=== PATIENT | male | born 1965 | race Caucasian/White ===

== ENCOUNTER 2017-10-18 12:27 | Observation (INO) | payer SELFPAY ==
[~2017-10-18] VITALS: Ht 182.9 cm; Wt 94.9 kg
[2017-10-18 12:54] LABS: BASOPHILS % (AUTO) 0.5 % (0.0-5.0); EOSINOPHILS % (AUTO) 1.2 % (0.0-8.0); HEMATOCRIT 54.1 % (42-54); LYMPHOCYTES % (AUTO) 9.2 % (21.0-51.0); MEAN CORPUSCULAR HEMOGLOBIN 31.7 pg (27.0-33.0); MEAN CORPUSCULAR HGB CONC 33.8 g/dL (32.0-36.0); MEAN CORPUSCULAR VOLUME 93.9 fL (79-99); MONOCYTES % (AUTO) 9.8 % (3.0-13.0); NEUTROPHILS % (AUTO) 79.3 % (40.0-77.0); NUCLEATED RED BLOOD CELLS 0.1 % (0.0-0.19); PLATELET COUNT (AUTO) 323 K/uL (130-400); RED BLOOD CELL COUNT(AUTO) 5.76 MIL/uL (4.50-6.20); RED CELL DISTRIBUTION WIDTH 13.9 % (11.0-15.5); WHITE BLOOD COUNT (AUTO) 13.3 K/uL (4.8-10.8)
[2017-10-18 13:01] LABS: CARBON DIOXIDE 32 mmol/L (21-32); CHLORIDE 100 mmol/L (101-111); CREATININE 1.9 mg/dL (0.5-1.5); GLOMERULAR FILTR. RATE CALC 40 mL/min (>60); GLUCOSE,RANDOM 75 mg/dL (70-105); POTASSIUM 4.3 mmol/L (3.5-5.1); SODIUM SERUM 136 mmol/L (136-145); UREA NITROGEN, BLOOD 16 mg/dL (7-18)
[2017-10-18] MEDS ORDERED: SODIUM CHLORIDE 0.9% 1000ML 1,000 ML IV ONE ×2 (13:02→14:35)
[2017-10-18 13:05] LABS: ALANINE AMINOTRANSFERASE 26 U/L (12-78); ALBUMIN 3.9 g/dL (3.5-5.0); ASPARTATE AMINOTRANSFERASE 31 U/L (10-37); BILIRUBIN,TOTAL 1.2 mg/dL (0.2-1.0); TOTAL PROTEIN, SERUM 7.2 g/dL (6.0-8.3)
[2017-10-18 13:08] LABS: ALCOHOL, BLOOD < 3 mg/dL (0-10)
[2017-10-18 14:11] LABS: APPEARANCE,URINE Clear (CLEAR); BILIRUBIN,URINE Small (NEGATIVE); COLOR,URINE Dark Yellow (YELLOW); GLUCOSE, URINE (UA) Negative (NEGATIVE); KETONES,URINE 40 mg/dL (NEGATIVE); LEUKOCYTE ESTERASE ,URINE Small (NEGATIVE); NITRATE,URINE Negative (NEGATIVE); OCCULT BLOOD,URINE Negative (NEGATIVE); PROTEIN,URINE POS 2+ (NEGATIVE)
[2017-10-18 14:18] LABS: AMPHET/METH SCREEN,URINE NEGATIVE (NEGATIVE); BARBITURATE SCREEN, URINE NEGATIVE (NEGATIVE); BENZODIAZEPINES SCREEN,URINE POSITIVE (NEGATIVE); CANNABINOID SCREEN,URINE POSITIVE (NEGATIVE); COCAINE SCREEN,URINE POSITIVE (NEGATIVE); OPIATE SCREEN,URINE NEGATIVE (NEGATIVE); PHENCYCLIDINE SCREEN,URINE NEGATIVE (NEGATIVE)
[2017-10-18 14:29] LABS: BACTERIA,URINE None Seen /HPF (None Seen); MUCUS,URINE Moderate LPF (None Seen); RBC,URINE None Seen /HPF (0-1); TRANSITIONAL EPI CELLS,URINE Few /HPF (None Seen)
[2017-10-18 15:00] LABS: ABG BASE EXCESS -2.5 mmol/L (-2.0-3.0); ABG HCO3 22.5 mmol/L (21.0-28.0); ABG OXYGEN SATURATION 94.9 % (95.0-99.0); ABG PCO2 40 mmHg (35-48)
[2017-10-18] MEDS ORDERED: LIDOCAINE HCL 1% 20 ML VIAL ONE (15:37)
[2017-10-18 16:19] LABS: INR 1.1 (0.85-1.15); PROTHROMBIN TIME 11.5 SEC (9.6-11.6)
[2017-10-18 18:22] LABS: APPEARANCE,CSF CLEAR (CLEAR); COLOR,CSF COLORLESS (COLORLESS); CSF TUBE NUMBER 1
[2017-10-18 18:24] LABS: CSF 2ND TUBE NUMBER 3
[2017-10-18 18:25] LABS: APPEARANCE2,CSF CLEAR (CLEAR); COLOR2,CSF COLORLESS (COLORLESS)
[2017-10-18] MEDS ORDERED: LACTATED RINGERS 1000ML 1,000 ML IV ONE (18:30)
[2017-10-18 18:41] LABS: RED BLOOD CELL1,CSF 50 CMM (0-0); WHITE BLOOD CELL1,CSF 1 CMM (0-5)
[2017-10-18 18:52] LABS: GLUCOSE, CSF 64 mg/dL (40-70); TOTAL PROTEIN, CSF 34 mg/dL (15-45)
[2017-10-18 19:00] VITALS: BP 86/37
[2017-10-18 20:00] VITALS: BP 82/56
[2017-10-18 21:00] VITALS: BP 85/51
[2017-10-18 22:00] VITALS: BP 87/51
[2017-10-18 23:00] VITALS: BP 111/62
[2017-10-19] VITALS (7 sets, daily range): BP systolic 97–116; BP diastolic 53–67
[2017-10-19] MEDS ORDERED: LACTATED RINGERS 1000ML 1,000 ML IV ONE (04:02)
[2017-10-19] MEDS ORDERED: LACTATED RINGERS 1000ML 1,000 ML IV SCH (04:15)
[2017-10-19] MEDS ORDERED: ENOXAPARIN SODIUM 40 MG/0.4 ML SYRINGE SQ SCH (08:00)
[2017-10-19] MEDS ORDERED: PANTOPRAZOLE SODIUM 40 MG TABLET.DR PO SCH (09:00)
== END 2017-10-19 11:01 | disposition left against medical advice (07) ==
LOC: EDH 12:27 → EDHIP 12:28 → 2CH 18:09
PROVIDERS: ADMIT Internal Medicine Nephrology; ATTEND Internal Medicine Nephrology
DX: G31.9 Degenerative disease of nervous system, unspecified (principal); D72.829 Elevated white blood cell count, unspecified; Z79.899 Other long term (current) drug therapy
CPT/HCPCS: 36415; 36600; 62270; 70450; 80053; 80305; 81001; 82375; 82803; 82945; 83605; 84157; 85025; 85610; 85730; 87071; 87147; 87205; 87210; 87252; 87556; 89051 ×2; 93005; 96372; 99291; G0378 ×23; G0480; J1650; J7030 ×2; J7120 ×2

== ENCOUNTER 2021-03-06 11:13 | Inpatient (IN) | payer SELFPAY ==
[~2021-03-06] VITALS: Ht 182.9 cm; Wt 102.1 kg
[2021-03-06 12:26] LABS: BASOPHILS % (AUTO) 0.6 % (0.0-5.0); EOSINOPHILS % (AUTO) 0.9 % (0.0-8.0); HEMATOCRIT 49.2 % (42-54); LYMPHOCYTES % (AUTO) 14.9 % (21.0-51.0); MEAN CORPUSCULAR HEMOGLOBIN 29.1 pg (27.0-33.0); MEAN CORPUSCULAR HGB CONC 33.1 g/dL (32.0-36.0); MEAN CORPUSCULAR VOLUME 87.9 fL (79-99); MONOCYTES % (AUTO) 9.3 % (3.0-13.0); NEUTROPHILS % (AUTO) 73.7 % (40.0-77.0); PLATELET COUNT (AUTO) 354 K/uL (130-400); RED CELL DISTRIBUTION WIDTH 15.6 % (11.0-15.5); WHITE BLOOD COUNT (AUTO) 11.6 K/uL (4.8-10.8)
[2021-03-06 12:35] LABS: CREATININE 1.1 mg/dL (0.5-1.5); POTASSIUM 3.8 mmol/L (3.5-5.1)
[2021-03-06] MEDS ORDERED: DILTIAZEM 25MG INJ IVP STA (12:38)
[2021-03-06 12:40] LABS: ALBUMIN 3.4 g/dL (3.5-5.0); BILIRUBIN,TOTAL 0.2 mg/dL (0.2-1.0); TOTAL PROTEIN, SERUM 7.3 g/dL (6.0-8.3)
[2021-03-06] MEDS ORDERED: DILTIAZEM 50MG VIAL IV ONE (12:41)
[2021-03-06 13:00] LABS: MAGNESIUM 1.9 mg/dL (1.80-2.40)
[2021-03-06] MEDS ORDERED: ENOXAPARIN SODIUM 100 MG/1 ML SQ SCH (13:00)
[2021-03-06] MEDS ORDERED: 0.9% NACL 500ML IV.SOLN 500 ML IV ONE (13:00)
[2021-03-06] MEDS ORDERED: ONDANSETRON 4MG INJ IVP STA (13:32)
[2021-03-06] MEDS ORDERED: FOLIC ACID 1 MG, THIAMINE HCL 100 MG in 0.9%NACL 1000ML 1,000 ML IV ONE (13:37)
[2021-03-06] MEDS ORDERED: FAMOTIDINE 20MG VIAL IV STA (13:38)
[2021-03-06] MEDS ORDERED: AMIODARONE 150MG VIAL 150 MG in DEXTROSE 5%-WATER 100 ML IV ONE ×2 (13:51→14:30)
[2021-03-06] MEDS ORDERED: DILTIAZEM 25MG INJ IVP PRN (15:00)
[2021-03-06] MEDS ORDERED: DILTIAZEM 125 MG/25 ML INJ 125 MG in 0.9%NACL 100ML 100 ML IV PRN (15:00)
[2021-03-06] MEDS ORDERED: DILTIAZEM 125 MG/25 ML INJ 125 MG in 0.9%NACL 100ML 100 ML IV SCH (15:00)
[2021-03-06] MEDS ORDERED: PHARMACY COMMUNICATION MISC PRN (15:00)
[2021-03-06] MEDS ORDERED: COMPOUND IV REFRIGERATED 1 EACH IVSOLN MISC PRN (15:30)
[2021-03-06 15:39] LABS: AMPHET/METH SCREEN,URINE NEGATIVE (NEGATIVE); BARBITURATE SCREEN, URINE NEGATIVE (NEGATIVE); BENZODIAZEPINES SCREEN,URINE POSITIVE (NEGATIVE); CANNABINOID SCREEN,URINE POSITIVE (NEGATIVE); COCAINE SCREEN,URINE POSITIVE (NEGATIVE); OPIATE SCREEN,URINE NEGATIVE (NEGATIVE); PHENCYCLIDINE SCREEN,URINE NEGATIVE (NEGATIVE)
[2021-03-06 15:48] LABS: APPEARANCE,URINE CLEAR (CLEAR); BILIRUBIN,URINE NEGATIVE (NEGATIVE); COLOR,URINE YELLOW (YELLOW); GLUCOSE, URINE (UA) NEGATIVE (NEGATIVE); KETONES,URINE NEGATIVE (NEGATIVE); LEUKOCYTE ESTERASE ,URINE NEGATIVE (NEGATIVE); NITRATE,URINE NEGATIVE (NEGATIVE); OCCULT BLOOD,URINE NEGATIVE (NEGATIVE); PH,URINE 6.5 (5.0-8.0); PROTEIN,URINE 30 mg/dL (NEGATIVE); UROBILINOGEN,URINE 0.2 mg/dL (0.2-1.0)
[2021-03-06 15:54] LABS: BACTERIA,URINE Few /HPF (None Seen); HYALINE CASTS, URINE 0-1 /LPF (0-1 /LPF); MUCUS,URINE Moderate LPF (None Seen); SQUAMOUS EPITHELIAL CELL,UR Few /HPF (0-2)
[2021-03-06] MEDS ORDERED: METOPROLOL TARTRATE 1 MG/ML 5ML VIAL IV ONE (16:30)
[2021-03-06] MEDS: METOPROLOL SUCCINATE 50 MG TAB.SR.24H PO SCH (16:30)
[2021-03-06] MEDS ORDERED: DIGOXIN 250 MCG/ML 2ML AMP IV SCH (17:00)
[2021-03-06] MEDS ORDERED: ACETAMINOPHEN 325 MG TAB PO PRN (21:00)
[2021-03-06] MEDS ORDERED: HYDROCODONE/ACETAMINOPHEN 7.5/325 MG TAB PO ONE (21:00)
[2021-03-06] MEDS: CHLORDIAZEPOXIDE HCL 25 MG CAP PO PRN (22:02)
[2021-03-06] MEDS ORDERED: KETOROLAC 15MG/ML VIAL (15MG/ML) IV ONE (23:00)
[2021-03-07 01:30] VITALS: BP 132/64
[2021-03-07 04:43] VITALS: BP 142/38
[2021-03-07] MEDS: ACETAMINOPHEN 325 MG TAB PO PRN ×2 (06:33→12:29)
[2021-03-07] MEDS: CHLORDIAZEPOXIDE HCL 25 MG CAP PO PRN ×3 (06:46→20:13)
[2021-03-07 07:00] VITALS: BP 140/67
[2021-03-07] MEDS ORDERED: THIAMINE HCL 100 MG/ML 2ML VIAL IVP SCH (09:00)
[2021-03-07] MEDS ORDERED: PANTOPRAZOLE 40 MG/VIAL IVP SCH (09:00)
[2021-03-07] MEDS: ENOXAPARIN SODIUM 30 MG/0.3 ML SQ SCH (09:02)
[2021-03-07] MEDS: PANTOPRAZOLE 40 MG TAB DR PO SCH (09:02)
[2021-03-07] MEDS: METOPROLOL SUCCINATE 50 MG TAB.SR.24H PO SCH (09:03)
[2021-03-07 11:00] VITALS: BP 118/91
[2021-03-07] MEDS ORDERED: M.V.I. IV [ADULT] 10 ML, FOLIC ACID 1 MG, THIAMINE HCL 300 MG in 0.9%NACL 1000ML 1,000 ML IV SCH (12:00)
[2021-03-07 16:00] VITALS: BP 128/68
[2021-03-07 19:10] VITALS: BP 134/91
[2021-03-07] MEDS ORDERED: TRAMADOL HCL 50 MG TABLET ONE (20:06)
[2021-03-07] MEDS: TRAMADOL HCL 50 MG TABLET PO PRN (20:14)
[2021-03-07] MEDS: M.V.I. IV [ADULT] 10 ML, FOLIC ACID 1 MG, THIAMINE HCL 300 MG in 0.9%NACL 1000ML 1,000 ML IV SCH (20:18)
[2021-03-08 08:00] VITALS: BP 121/91
[2021-03-08] MEDS: METOPROLOL SUCCINATE 50 MG TAB.SR.24H PO SCH ×4 (09:25→20:21)
[2021-03-08] MEDS: PANTOPRAZOLE 40 MG TAB DR PO SCH (09:27)
[2021-03-08] MEDS ORDERED: METO25TA6 PO (09:27)
[2021-03-08] MEDS ORDERED: APIX5TAB PO (09:27)
[2021-03-08] MEDS: ENOXAPARIN SODIUM 30 MG/0.3 ML SQ SCH (09:27)
[2021-03-08] MEDS: ACETAMINOPHEN 325 MG TAB PO PRN (09:36)
[2021-03-08] MEDS ORDERED: METOPROLOL TARTRATE 1 MG/ML 5ML VIAL IV SCH (10:49)
[2021-03-08] MEDS ORDERED: METOPROLOL TARTRATE 1 MG/ML 5ML VIAL IV ONE (10:52)
[2021-03-08 11:44] VITALS: BP 141/88
[2021-03-08 16:00] VITALS: BP 115/76
[2021-03-08] MEDS ORDERED: PHARMACY COMMUNICATION MISC SCH (16:00)
[2021-03-08 19:48] VITALS: BP 132/79
[2021-03-08] MEDS: M.V.I. IV [ADULT] 10 ML, FOLIC ACID 1 MG, THIAMINE HCL 300 MG in 0.9%NACL 1000ML 1,000 ML IV SCH (20:00)
[2021-03-08] MEDS: CHLORDIAZEPOXIDE HCL 25 MG CAP PO PRN (20:21)
[2021-03-08] MEDS: TRAMADOL HCL 50 MG TABLET PO PRN (20:21)
[2021-03-09] MEDS: TRAMADOL HCL 50 MG TABLET PO PRN ×2 (03:41→13:43)
[2021-03-09 04:00] VITALS: BP 126/87
[2021-03-09 08:00] VITALS: BP 136/69
[2021-03-09] MEDS: METOPROLOL SUCCINATE 50 MG TAB.SR.24H PO SCH ×2 (09:05→13:43)
[2021-03-09] MEDS: PANTOPRAZOLE 40 MG TAB DR PO SCH (09:05)
[2021-03-09] MEDS: ACETAMINOPHEN 325 MG TAB PO PRN ×2 (09:06→16:16)
[2021-03-09] MEDS: ENOXAPARIN SODIUM 30 MG/0.3 ML SQ SCH (09:07)
[2021-03-09 12:00] VITALS: BP 121/79
== END 2021-03-09 17:30 | disposition home or self-care (01) | DRG 308 ==
LOC: EDH 11:13 → EDHIP 11:14 → 4DH 03-07 00:15 → 4CH 03-08 18:52
PROVIDERS: ADMIT Hospitalist; ATTEND Hospitalist
DX: I48.0 Paroxysmal atrial fibrillation (principal); I50.43 Acute on chronic combined systolic (congestive) and diastolic (congestive) heart failure; D68.59 Other primary thrombophilia; F12.10 Cannabis abuse, uncomplicated; F13.90 Sedative, hypnotic, or anxiolytic use, unspecified, uncomplicated; F14.10 Cocaine abuse, uncomplicated; Z95.810 Presence of automatic (implantable) cardiac defibrillator; Z91.14 Patient's other noncompliance with medication regimen; Z79.01 Long term (current) use of anticoagulants; Z79.899 Other long term (current) drug therapy
CPT/HCPCS: 36415; 71045; 80053; 80305; 81001; 82550; 83735; 83880; 84484; 85025; 93005; 99291; 99292; G0378; J0282; J1160; J1650; J2405; J3411; J3490; J7030; J7060

== ENCOUNTER 2021-07-25 19:21 | Inpatient (IN) | payer OTHER ==
[~2021-07-25] VITALS: Ht 180.3 cm; Wt 87.7 kg
[~2021-07-25 19:21] MED LIST: APIX5TAB PO; METO25TA6 PO
[2021-07-25] MEDS ORDERED: 0.9%NACL 1000ML 2,000 ML IV ONE (20:00)
[2021-07-25] MEDS ORDERED: DILTIAZEM 50MG VIAL IV SCH (20:00)
[2021-07-25 20:09] LABS: BASOPHILS % (AUTO) 0.4 % (0.0-5.0); EOSINOPHILS % (AUTO) 2.2 % (0.0-8.0); HEMATOCRIT 45.2 % (42-54); MEAN CORPUSCULAR HEMOGLOBIN 30.2 pg (27.0-33.0); MEAN CORPUSCULAR HGB CONC 33.2 g/dL (32.0-36.0); MEAN CORPUSCULAR VOLUME 90.9 fL (79-99); MONOCYTES % (AUTO) 8.3 % (3.0-13.0); NEUTROPHILS % (AUTO) 79.6 % (40.0-77.0); PLATELET COUNT (AUTO) 357 K/uL (130-400); RED BLOOD CELL COUNT(AUTO) 4.97 MIL/uL (4.50-6.20); RED CELL DISTRIBUTION WIDTH 13.4 % (11.0-15.5); WHITE BLOOD COUNT (AUTO) 13.5 K/uL (4.8-10.8)
[2021-07-25 20:19] LABS: CREATININE 0.9 mg/dL (0.5-1.5); POTASSIUM 3.3 mmol/L (3.5-5.1)
[2021-07-25 20:25] LABS: ALCOHOL, BLOOD < 3 mg/dL (0-10); CREATINE KINASE, TOTAL 234 U/L (21-232)
[2021-07-25 20:29] LABS: ALBUMIN 3.3 g/dL (3.5-5.0); BILIRUBIN,TOTAL 0.5 mg/dL (0.2-1.0); TOTAL PROTEIN, SERUM 6.9 g/dL (6.0-8.3)
[2021-07-25 21:15] LABS: APPEARANCE,URINE Clear (CLEAR); BILIRUBIN,URINE Negative (NEGATIVE); COLOR,URINE Yellow (YELLOW); GLUCOSE, URINE (UA) Negative (NEGATIVE); KETONES,URINE Negative (NEGATIVE); LEUKOCYTE ESTERASE ,URINE Small (NEGATIVE); NITRATE,URINE Negative (NEGATIVE); OCCULT BLOOD,URINE Negative (NEGATIVE); PROTEIN,URINE Negative (NEGATIVE)
[2021-07-25] MEDS: DILTIAZEM 125 MG/25 ML INJ 125 MG in 0.9%NACL 100ML 100 ML IV SCH (21:21)
[2021-07-25 21:23] LABS: AMPHET/METH SCREEN,URINE NEGATIVE (NEGATIVE); BARBITURATE SCREEN, URINE NEGATIVE (NEGATIVE); BENZODIAZEPINES SCREEN,URINE POSITIVE (NEGATIVE); CANNABINOID SCREEN,URINE POSITIVE (NEGATIVE); COCAINE SCREEN,URINE POSITIVE (NEGATIVE); OPIATE SCREEN,URINE NEGATIVE (NEGATIVE); PHENCYCLIDINE SCREEN,URINE NEGATIVE (NEGATIVE)
[2021-07-25 21:30] LABS: BACTERIA,URINE Rare /HPF (None Seen); RBC,URINE None Seen /HPF (0-1); WBC,URINE 0-1 /HPF (0-1)
[2021-07-25 21:31] LABS: SQUAMOUS EPITHELIAL CELL,UR None Seen /HPF (0-2)
[2021-07-25] MEDS ORDERED: DILTIAZEM 25MG INJ IVP ONE (22:00)
[2021-07-25] MEDS ORDERED: ONDANSETRON 4MG INJ IV PRN (22:00)
[2021-07-25] MEDS ORDERED: NITROGLYCERIN 0.4 MG SL TAB SL PRN (22:00)
[2021-07-25] MEDS ORDERED: 0.9%NACL 1000ML 1,000 ML IV SCH (22:30)
[2021-07-25] MEDS: 0.9%NACL 1000ML 1,000 ML IV SCH (22:49)
[2021-07-25] MEDS ORDERED: KCL 20 MEQ ERTAB PO PRN (23:30)
[2021-07-25] MEDS ORDERED: LIDOCAINE HCL-MPF 1% 2ML VIAL IV PRN (23:30)
[2021-07-25] MEDS ORDERED: POTASSIUM CHLORIDE 20MEQ/100ML 100 ML IV PRN (23:30)
[2021-07-25] MEDS ORDERED: POTASSIUM CHLORIDE 10% ELIXIR 20 MEQ/15 ML UDCUP PO PRN (23:30)
[2021-07-26] MEDS ORDERED: 0.9%NACL 100ML 100 ML ONE (03:58)
[2021-07-26] MEDS ORDERED: DILTIAZEM 125 MG/25 ML INJ IV ONE (03:58)
[2021-07-26] MEDS: DILTIAZEM 125 MG/25 ML INJ 125 MG in 0.9%NACL 100ML 100 ML IV SCH ×2 (04:11→16:26)
[2021-07-26 07:03] LABS: BASOPHILS % (AUTO) 0.2 % (0.0-5.0); EOSINOPHILS % (AUTO) 1.7 % (0.0-8.0); LYMPHOCYTES % (AUTO) 9.3 % (21.0-51.0); MEAN CORPUSCULAR HEMOGLOBIN 29.7 pg (27.0-33.0); MEAN CORPUSCULAR HGB CONC 32.3 g/dL (32.0-36.0); MEAN CORPUSCULAR VOLUME 91.9 fL (79-99); MONOCYTES % (AUTO) 9.2 % (3.0-13.0); NEUTROPHILS % (AUTO) 79.2 % (40.0-77.0); PLATELET COUNT (AUTO) 292 K/uL (130-400); RED BLOOD CELL COUNT(AUTO) 4.68 MIL/uL (4.50-6.20); RED CELL DISTRIBUTION WIDTH 13.6 % (11.0-15.5); WHITE BLOOD COUNT (AUTO) 13.5 K/uL (4.8-10.8)
[2021-07-26 07:15] LABS: CREATININE 0.7 mg/dL (0.5-1.5); PHOSPHORUS 3.2 mg/dL (2.5-4.9); POTASSIUM 3.9 mmol/L (3.5-5.1)
[2021-07-26] MEDS: 0.9%NACL 1000ML 1,000 ML IV SCH (08:37)
[2021-07-26] MEDS: FAMOTIDINE 20MG TAB PO SCH (08:38)
[2021-07-26] MEDS: ENOXAPARIN SODIUM 40 MG/0.4 ML SYRINGE SQ SCH (08:38)
[2021-07-26] MEDS ORDERED: M.V.I. IV [ADULT] 10 ML, FOLIC ACID 1 MG, THIAMINE HCL 100 MG in 0.9%NACL 1000ML 1,000 ML IV SCH (09:43)
[2021-07-26] MEDS: CEFTRIAXONE 1G VIAL IVP SCH (11:07)
[2021-07-26 11:46] VITALS: BP 108/60
[2021-07-26 14:00] VITALS: BP 102/56
[2021-07-26 16:54] VITALS: BP 91/60
[2021-07-26 18:12] VITALS: BP 97/60
[2021-07-26 19:06] VITALS: BP 100/65
[2021-07-26 23:22] VITALS: BP 98/58
[2021-07-27 03:32] VITALS: BP 103/64
[2021-07-27 07:30] VITALS: BP 127/75
[2021-07-27] MEDS: FAMOTIDINE 20MG TAB PO SCH (08:43)
[2021-07-27] MEDS: FOLIC ACID 1 MG TABLET PO SCH (08:43)
[2021-07-27] MEDS: THIAMINE HCL 100 MG TABLET PO SCH (08:43)
[2021-07-27] MEDS: ENOXAPARIN SODIUM 40 MG/0.4 ML SYRINGE SQ SCH (08:44)
[2021-07-27] MEDS: CEFTRIAXONE 1G VIAL IVP SCH (09:28)
[2021-07-27 10:45] LABS: BASOPHILS % (AUTO) 0.5 % (0.0-5.0); EOSINOPHILS % (AUTO) 1.5 % (0.0-8.0); HEMATOCRIT 45.5 % (42-54); LYMPHOCYTES % (AUTO) 14.9 % (21.0-51.0); MEAN CORPUSCULAR HEMOGLOBIN 29.9 pg (27.0-33.0); MEAN CORPUSCULAR HGB CONC 31.6 g/dL (32.0-36.0); MEAN CORPUSCULAR VOLUME 94.4 fL (79-99); MONOCYTES % (AUTO) 7.7 % (3.0-13.0); NEUTROPHILS % (AUTO) 74.8 % (40.0-77.0); PLATELET COUNT (AUTO) 314 K/uL (130-400); RED BLOOD CELL COUNT(AUTO) 4.82 MIL/uL (4.50-6.20)
[2021-07-27 11:06] LABS: BILIRUBIN,TOTAL 0.5 mg/dL (0.2-1.0); CREATININE 0.9 mg/dL (0.5-1.5); POTASSIUM 3.7 mmol/L (3.5-5.1); TOTAL PROTEIN, SERUM 6.5 g/dL (6.0-8.3)
[2021-07-27 11:20] VITALS: BP 109/65
[2021-07-27 18:51] VITALS: BP 110/64
[2021-07-27 19:35] VITALS: BP 122/80
[2021-07-27] MEDS: TRAZODONE HCL 50 MG TAB PO SCH (19:41)
[2021-07-27] MEDS ORDERED: METOPROLOL TARTRATE 25 MG TAB PO SCH (21:00)
[2021-07-27] MEDS: HYDROXYZINE 25 MG TABLET PO SCH (21:00)
[2021-07-28 08:00] VITALS: BP 129/83
[2021-07-28] MEDS ORDERED: PHARMACY COMMUNICATION MISC PRN (09:30)
[2021-07-28] MEDS ORDERED: CHLORDIAZEPOXIDE HCL 25 MG CAP PO PRN (09:30)
[2021-07-28] MEDS: CEFTRIAXONE 1G VIAL IVP SCH (11:14)
[2021-07-28] MEDS: FOLIC ACID 1 MG TABLET PO SCH (11:15)
[2021-07-28] MEDS: THIAMINE HCL 100 MG TABLET PO SCH (11:15)
[2021-07-28] MEDS: HYDROXYZINE 25 MG TABLET PO SCH ×3 (11:15→19:29)
[2021-07-28] MEDS: METOPROLOL TARTRATE 25 MG TAB PO SCH ×2 (11:15→19:30)
[2021-07-28] MEDS: FAMOTIDINE 20MG TAB PO SCH (11:15)
[2021-07-28] MEDS: APIXABAN 5 MG TABLET PO SCH ×2 (11:16→19:30)
[2021-07-28] MEDS ORDERED: ACETAMINOPHEN 500 MG TABLET PO PRN (12:30)
[2021-07-28] MEDS: TRAZODONE HCL 50 MG TAB PO SCH (19:30)
[2021-07-28] MEDS ORDERED: APIXABAN 5 MG TABLET PO SCH (21:00)
[2021-07-29 07:31] LABS: BASOPHILS % (AUTO) 0.6 % (0.0-5.0); EOSINOPHILS % (AUTO) 0.9 % (0.0-8.0); HEMATOCRIT 47.2 % (42-54); LYMPHOCYTES % (AUTO) 19.5 % (21.0-51.0); MEAN CORPUSCULAR HEMOGLOBIN 29.8 pg (27.0-33.0); MEAN CORPUSCULAR HGB CONC 31.6 g/dL (32.0-36.0); MEAN CORPUSCULAR VOLUME 94.4 fL (79-99); MONOCYTES % (AUTO) 7.1 % (3.0-13.0); NEUTROPHILS % (AUTO) 71.5 % (40.0-77.0); PLATELET COUNT (AUTO) 320 K/uL (130-400); RED CELL DISTRIBUTION WIDTH 13.8 % (11.0-15.5); WHITE BLOOD COUNT (AUTO) 8.5 K/uL (4.8-10.8)
[2021-07-29 07:40] LABS: POTASSIUM 4.2 mmol/L (3.5-5.1)
[2021-07-29 08:00] VITALS: BP 132/67
[2021-07-29] MEDS: APIXABAN 5 MG TABLET PO SCH ×2 (08:29→20:20)
[2021-07-29] MEDS: FOLIC ACID 1 MG TABLET PO SCH (08:29)
[2021-07-29] MEDS: HYDROXYZINE 25 MG TABLET PO SCH ×3 (08:29→20:20)
[2021-07-29] MEDS: METOPROLOL TARTRATE 25 MG TAB PO SCH ×2 (08:29→20:20)
[2021-07-29] MEDS: FAMOTIDINE 20MG TAB PO SCH (08:29)
[2021-07-29] MEDS: THIAMINE HCL 100 MG TABLET PO SCH (08:29)
[2021-07-29 12:00] VITALS: BP 108/69
[2021-07-29 16:00] VITALS: BP 108/74
[2021-07-29 19:00] VITALS: BP 106/61
[2021-07-29] MEDS: TRAZODONE HCL 50 MG TAB PO SCH (20:20)
[2021-07-30 07:32] VITALS: BP 120/71
[2021-07-30] MEDS ORDERED: METO25TA6 PO (08:46)
[2021-07-30] MEDS ORDERED: APIX5TAB PO (08:46)
[2021-07-30] MEDS: METOPROLOL TARTRATE 25 MG TAB PO SCH (09:18)
[2021-07-30] MEDS: THIAMINE HCL 100 MG TABLET PO SCH (09:18)
[2021-07-30] MEDS: FAMOTIDINE 20MG TAB PO SCH (09:19)
[2021-07-30] MEDS: FOLIC ACID 1 MG TABLET PO SCH (09:19)
[2021-07-30] MEDS: APIXABAN 5 MG TABLET PO SCH (09:19)
[2021-07-30] MEDS: HYDROXYZINE 25 MG TABLET PO SCH (09:19)
[2021-07-30 11:11] VITALS: BP 117/62
== END 2021-07-30 13:00 | disposition home or self-care (01) | DRG 309 ==
LOC: EDH 19:21 → EDHIP 19:22 → UNDOADMIN 21:42 → 2DH 07-26 11:28
PROVIDERS: ADMIT Internal Medicine; ATTEND Internal Medicine
DX: I48.91 Unspecified atrial fibrillation (principal); R45.851 Suicidal ideations; D68.59 Other primary thrombophilia; G93.40 Encephalopathy, unspecified; E87.6 Hypokalemia; D72.829 Elevated white blood cell count, unspecified; F41.9 Anxiety disorder, unspecified; F12.10 Cannabis abuse, uncomplicated; F14.10 Cocaine abuse, uncomplicated; R73.9 Hyperglycemia, unspecified; F13.10 Sedative, hypnotic or anxiolytic abuse, uncomplicated; F31.9 Bipolar disorder, unspecified; Z59.01 Sheltered homelessness; Z79.01 Long term (current) use of anticoagulants; Z90.49 Acquired absence of other specified parts of digestive tract; Z91.14 Patient's other noncompliance with medication regimen; Z91.19 Patient's noncompliance with other medical treatment and regimen; Z95.810 Presence of automatic (implantable) cardiac defibrillator; Z80.0 Family history of malignant neoplasm of digestive organs; Z83.6 Family history of other diseases of the respiratory system
CPT/HCPCS: 36415; 70450; 71045; 80048; 80053; 80305; 81001; 82550; 83036; 83605; 83735; 83880; 84100; 84484; 85025; 93005; 93306; 93356; 99291; G0378; J0696; J1650; J3411; J3490; J7030